=== PATIENT | female | born 1955 | race Asian ===

== ENCOUNTER 2025-02-03 17:32 | Emergency (ER) | payer MEDICARE, SELFPAY ==
--- NOTE | 2025-02-03 17:40 | PC.NURSE ---
PT CALLED BACK TO HAVE VITALS TAKEN. NO RESPONSE FROM LOBBY OR OUTSIDE X1 @[id number]
--- NOTE | 2025-02-03 18:34 | PC.NURSE ---
NO ANSWER X3 [id number] MS
[2025-02-03 19:13] VITALS: BP 167/73; PULSE 72; RESP 19; TEMP 36.8; O2SAT 99; BMI 31.5
--- NOTE | 2025-02-03 19:18 | EKG_ITS ---
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
--- NOTE | 2025-02-03 19:18 | XR_ITS ---
EXAMINATION: PA chest single view TECHNIQUE: Upright PA chest single view Date and time: February 03, 2025, 192 hours INDICATIONS: Onset chest pain today. FINDINGS: Mild prominence left ventricle No pneumonia or pulmonary edema. The Ron structures are intact IMPRESSION: No active disease
--- NOTE | 2025-02-03 19:19 | PD.EDRME ---
Rapid Medical Screening Exam RME Arrival date/time: 02/03/25 17:32 69F with history of HTN presents to ED with 1 week of upper back pain that got worse today because it radiates forward to chest. Patient denies fall/trauma and URI symptoms. She got some kind of injection outpatient that did not provide relief. Chief Complaint: Back Pain/Injury Time Seen by Provider: 02/03/25 21:50 Vital signs: Vital Signs Temperature 98.2 F 02/03/25 19:13 Pulse Rate 72 02/03/25 19:13 Respiratory Rate 19 02/03/25 19:13 Blood Pressure 167/73 H 02/03/25 19:13 Pulse Oximetry (%) 99 02/03/25 19:13 Oxygen Delivery Method Room Air 02/03/25 19:13 Exam: No midline back tenderness. Normal WOB. Clinical Impression: Back pain vs DDD vs CAP vs PE vs ACS
[2025-02-03] MEDS: HYDROcodone/APAP 5/325 TABLET 1 TAB PO (19:33)
[2025-02-03 20:02] LABS: Basophils # (Auto) 0.0 Thou/mm3 (0.0-0.2); Basophils % (Auto) 0 % (0-2.5); Eosinophils # (Auto) 0.0 Thou/mm3 (0.0-0.5); Eosinophils % (Auto) 0 % (0-10); Hematocrit 42.3 % (36.0-46.0); Hemoglobin 13.4 g/dL (12.0-16.0); Immature Granulocytes Auto 0.03 Thou/mm3 (0.00-0.00); Lymphocytes # (Auto) 1.8 Thou/mm3 (1.0-4.8); Lymphocytes % (Auto) 22 % (10-50); Mean Corpuscular HGB Conc 31.7 g/dl (31.0-37.0); Mean Corpuscular Hemoglobin 25.5 pg (25.0-35.0); Mean Corpuscular Volume 80 fL (80-100); Monocytes # (Auto) 0.5 Thou/mm3 (0.0-0.8); Monocytes % (Auto) 7 % (0-12); Neutrophils # (Auto) 5.6 Thou/mm3 (1.8-7.7); Neutrophils % (Auto) 70 % (37-80); Nucleated Red Blood Cell # 0.00 Thou/mm3 (0.00-0.00); Nucleated Red Blood Cell % 0 /100 WBC (0); Platelet Count 256 Thou/mm3 (140-440); RDW Standard Deviation 42.6 fL (36.4-46.3); Red Blood Count 5.26 Miln/mm3 (4.00-5.20); White Blood Count 8.0 Thou/mm3 (3.6-11.0)
[2025-02-03 20:22] LABS: Alanine Aminotransferase 60 U/L (10-49); Albumin, Serum 4.9 gm/dL (3.4-4.8); Albumin/Globulin Ratio 1.6 (1.2-2.2); Alkaline Phosphatase 82 U/L (46-116); Anion Gap 11 (7-16); Aspartate Amino Transferase 23 U/L (0-34); BUN/Creatinine Ratio 15 Ratio (12-20); Bilirubin,Total 0.5 mg/dL (0.3-1.2); Blood Urea Nitrogen 12 mg/dL (9-23); Calcium 10.5 mg/dL (8.3-10.6); Calcium (Corrected) 10.5 mg/dL (8.5-10.1); Carbon Dioxide 27.4 mMol/L (20.0-31.0); Chloride 103 mMol/L (98-107); Creatinine (Component) 0.8 mg/dL (0.6-1.3); Estimated Creatinine Clearance 63.5 mL/min (>60); Globulin 3.0 gm/dL (2.3-3.5); Glucose 130 mg/dL (74-106); Osmolality,Calculated 282 (275-295); Potassium 3.7 mMol/L (3.4-5.1); Sodium 141 mMol/L (136-145); Total Protein 7.9 gm/dL (5.7-8.2); Troponin I < 0.020 ng/mL (0.0-0.045); eGFR > 60 See Note
[2025-02-03 20:48] VITALS: BP 168/83; PULSE 70; RESP 16; TEMP 36.3; O2SAT 98
--- NOTE | 2025-02-03 22:14 | XR_ITS ---
Examination: CT thoracic spine without contrast. 2-D sagittal reconstructions. 2-D coronal reconstructions. 3-D reconstructions. Date and time of exam: February 03, 2025, 1021 hours INDICATIONS: Upper back pain after injections today CTDI: vol (mGy): 29.75 DLP: (mGycm): 1024 Technique: Multiple 1.25 mm axial sections of the thoracic spine without intravenous contrast have been obtained. 2-D sagittal and coronal reconstructions have been obtained. 3-D reconstructions have been obtained. Low dose protocols were performed. One or more of the following dose reduction techniques were used; automated exposure control, adjustment of the mA and/or KV according to patient size, use of iterative reconstruction technique. Findings: Adequate alignment thoracic vertebral bodies on the lateral view Mild to moderate thoracic spondylosis Mild diffuse thoracic disc narrowing No thoracic vertebral body compression fracture Pedicles laminae and posterior spinous processes appear intact IMPRESSION: Mild to moderate thoracic spondylosis
[2025-02-03 22:44] LABS: Collection Type, Urine Clean Catch
--- NOTE | 2025-02-03 22:52 | PD.EDNECK ---
ED Neck Injury Pain RME/HPI General Chief Complaint: Back Pain/Injury Stated Complaint: BACK HURTS Time Seen by Provider: 02/03/25 21:50 Arrival date/time: 02/03/25 17:32 RME / HPI MD complaint: neck pain and upper back pain RME / HPI Narrative: 02/03/25 17:32 69F with history of HTN presents to ED with 1 week of upper back pain that got worse today because it radiates forward to chest. Patient denies fall/trauma and URI symptoms. She got some kind of injection outpatient that did not provide relief. DR. WHITMAN MAIN ED EVALUATION: Patient presenting with diffuse upper posterior thoracic back pain predominantly on the left side with occasional radicular symptoms extending down the left arm of several days duration. Also reports generalized fatigue and weakness x approximately 1 week's duration. No recent fever, chills, vomiting, diarrhea or dysuria noted. PMH: HTN, Type II DM PSH: Hysterectomy, Appendectomy, Allergies: Penicillin, Codeine Social: Non-smoker, Non-drinker Exam: No midline back tenderness. Normal WOB. Impression: Back pain vs DDD vs CAP vs PE vs ACS Related Data Home Medications ?Medication ?Instructions ?Recorded ?Confirmed amlodipine 5 mg tablet 5 mg PO QDAY 04/15/22 04/15/22 cyclobenzaprine 10 mg tablet 10 mg PO BID PRN Spasms 04/15/22 04/15/22 naproxen 500 mg tablet 500 mg PO Q12H PRN Pain 04/15/22 04/15/22 simvastatin 20 mg tablet 20 mg PO QPM 04/15/22 04/15/22 Previous Rx's ?Medication ?Instructions ?Recorded meclizine 25 mg tablet 25 mg PO BID PRN dizziness #14 tabs 04/15/22 cyclobenzaprine 10 mg tablet 5 mg (1/2 x 10 mg) PO BID 7 days 02/04/25 #7 tabs hydrocodone 5 mg-acetaminophen 325 1 tab PO Q8H PRN pain #20 tabs 02/04/25 mg tablet prednisone 20 mg tablet 40 mg PO QDAY 5 days #10 tabs 02/04/25 Allergies Allergy/AdvReac Type Severity Reaction Status Date / Time PENICILLIN, TYLENOL 3 Allergy Unknown Uncoded 02/03/25 17:34 Review of Systems Review of Systems Systems Reviewed: All systems reviewed, normal except as documented Past Medical History Past Medical History CARDIAC: Positive Hypertension ENDOCRINE: Positive Diabetes Mellitus Type 2 ED Exam Narrative Physical exam: GEN. APPEARANCE: The patient is alert awake oriented X-3 under [id number] distress c/o diffuse upper/posterior throacic pain Patient has good eye contact. Patient is cooperative. VITALS: All vitals were reviewed and the pulse ox is 98%, which is normal according to my interpretation HEENT: Normocephalic, atraumatic and nontender. Pupils are equal and reactive. Oral mucosa is moist. NECK: Supple, Mild midline tenderness to the entire cervical segment ? reporducible symptoms with extension and rotation of cervical spine with radiation of pain involving the LUE., no meningismus, no JVD. There is no thyromegaly and no lymphadenopathy. CHEST: Nontender on palpation no deformity and no crepitus. CARDIOVASCULAR: Heart regular rhythm, no murmur or gallop rub or extra beats. LUNGS: Clear to auscultation bilaterally with symmetrical chest rise. No laboring tachypnea or wheezing. No intercostal subcostal retraction. No rales and no rhonchi. ABDOMEN: Soft, flat, nontender to palpation, no guarding or rebound tenderness. There are no abnormal masses palpated. No pulsatile masses or bruits. Active and normal bowel sounds. EXTREMITIES: Normal inspection and palpation. No edema. No cyanosis. Patient is able to move all 4 extremities well SKIN: Warm and dry, no rashes noted. MUSCULOSKELETAL: No lumbar or midline bony tenderness. There is no CVA tenderness. No paraspinal muscle spasm or tenderness. NEURO: Cranial nerves II through XII grossly intact. There are no focal neurologic deficits noted. GCS is 15 PSYCHIATRIC: Patient is in normal mood and affect, cooperative. LYMPHATICS: No major lymphadenopathy noted. Course Quality Measures none Orders Category Date Time Status Apply soft cervical collar NOW Care 02/04/25 00:25 Active EKG (ED ONLY) *Do not use* NOW Care 02/03/25 19:[address] cervical spine wo con Stat Exams 02/03/25 22:[address] thoracic spine wo con Stat Exams 02/03/25 22:14 Completed EKG (ED Only) Stat Exams 02/03/25 19:18 Draft XR chest 1V portable Stat Exams 02/03/25 19:18 Completed CBC Stat Lab 02/03/25 19:45 Completed Comprehensive Metabolic Panel Stat Lab 02/03/25 19:45 Completed Troponin I Stat Lab 02/03/25 19:45 Completed UA, C/S IF [Urinalysis, C/S if Indicated] Stat Lab 02/03/25 22:07 Completed Urine Culture Stat Lab 02/03/25 22:07 Received Dexamethasone Inj [Decadron Inj] Med 02/03/25 22:54 Discontinued 10 mg IM X1 ONE HYDROcodone*/APAP 5/325 [Esmond 5/325] Med 02/03/25 19:20 Discontinued 1 tab PO X1 ONE Morphine* Inj Med 02/03/25 22:54 Discontinued 4 mg IM X1 ONE Vital Signs Vital signs: Vital Signs Temperature 98.2 F 02/03/25 19:13 Pulse Rate 72 02/03/25 19:13 Respiratory Rate 19 02/03/25 19:13 Blood Pressure 167/73 H 02/03/25 19:13 Pulse Oximetry (%) 99 02/03/25 19:13 Oxygen Delivery Method Room Air 02/03/25 19:13 Neck Pain MDM Narrative MDM Narrative:: Scribe Attestation: Carli Gonzalez am scribing for and in the presence of Dr. Mcqueen. Provider Notation: Although this document has been carefully reviewed, there may still be some phonetic and other typographical errors. These errors are purely grammatical due to imperfections in the software program and should not be construed in any way to compromise the substance of the patient's medical care during this visit. Patient presenting with diffuse upper posterior thoracic back pain predominantly on the left side with occasional radicular symptoms extending down the left arm of several days duration. Also reports generalized fatigue and weakness x approximately 1 week's duration. Please see PE findings. Laboratory markers including CBC, serum chemistries, and UA essentially unremarkable, excluding equivocal evidence of UTI with pyuria. CXR unremarkable. CT imaging of the spine, including thoracic spine, demonstrates diffuse thoracic disc narrowing and C-spine CT demonstrates moderate degenerative changes. Patient was treated with PO narcotic analgesics, placed in soft collar, and will be discharged home on combination narcotic analgesics, muscle relaxants, and steroids. Recommend F/U with PMD as patient may require MRI if symptoms persist or develop UE weakness. Patient data External records reviewed:: [facility] previous records (Reviewed prior ED records from 04/15/22. Patient was seen for Benign paroxysmal positional vertigo.) Clinical information provided by:: patient Social determinants that could affect healthcare access:: none Patient has the following chronic illnesses:: HTN, Type II DM How is presenting disease/condition affected by chronic disease/condition?: exacerbated by Evaluation data The following diagnostics were reviewed and interpreted by me:: lab results, radiology exam(s) and EKG tracing(s) (EKG at 19:18 shows normal sinus rhythm at 77, occasional PAC's, leftward axis, no ventricular ectopy, per my interpretation.) Lab and/or radiology exams considered but not ordered:: None Interpretation Summary: RADIOLOGY Chest X-Ray: FINDINGS: Mild prominence left ventricle No pneumonia or pulmonary edema. The Ron structures are intact IMPRESSION: No active disease T-Spine CT: Findings: Adequate alignment thoracic vertebral bodies on the lateral view Mild to moderate thoracic spondylosis Mild diffuse thoracic disc narrowing No thoracic vertebral body compression fracture Pedicles laminae and posterior spinous processes appear intact IMPRESSION: Mild to moderate thoracic spondylosis C-Spine CT: Findings: Axial sections demonstrate intact base of the skull. C1 exhibit satisfactory relationship to the odontoid. No acute cervical vertebral body fracture seen. Alignment posterior spinous processes satisfactory. Moderate degenerative disc disease C4-C5, C5-C6, C6-C7 C3-C4 moderate left neural foraminal stenosis C5-C6 moderate bilateral neural foraminal stenosis C6-C7 moderate left neural foraminal stenosis Impression: No acute cervical fracture. Moderate degenerative disc disease C4-C5, C5-C6, C6-C7 C3-C4, C6-C7 moderate left neural foraminal stenosis C5-C6 moderate bilateral neural foraminal stenosis Medications / Prescriptions Medications or Prescriptions considered but not ordered:: None Medication administrations:: Medication Administration History Discontinued Medications Hydrocodone Bitart/Acetaminophen (Hydrocodone/Apap 5/325 Tablet) 1 tab PO X1 ONE Stop: 02/03/25 19:21 Last Admin: 02/03/25 19:33 Dose: 1 tab Documented By: MODESTO Dexamethasone Sodium Phosphate (Dexamethasone Sod Phos Inj 10 Mg/Ml Vial) 10 mg IM X1 ONE Stop: 02/03/25 22:55 Last Admin: 02/03/25 22:58 Dose: Not Given Documented By: BD Non-Admin Reason: Cancelled by Provider Morphine Sulfate (Morphine Sulf Inj 4 Mg/Ml Vial) 4 mg IM X1 ONE Stop: 02/03/25 22:55 Last Admin: 02/03/25 22:58 Dose: Not Given Documented By: BD Non-Admin Reason: Cancelled by Provider See above if any Consultations Consultation(s) initiated? (list below): No Diagnosis Neck Differential Diagnosis: disc disorder of cervical region, closed subluxation of cervical spine, cervical radiculopathy, vertebral artery dissection, torticollis, cervical spondylosis and strain of neck muscle Most likely diagnosis given after review of the tests above:: UTI, Cervical Radiculopathy Admission Indicated Admission indicated?: not indicated Explain why admission is indicated or not indicated:: Patient does not meet admission criteria Admission Request Was there a request for admission?: No Disposition Plan Disposition Plan: Discharge Discharge Attestation Discharge Attestation: The patient and all family members were given an opportunity to ask questions and understood the discharge instructions. Discharge instructions specifically effects, indications for sooner follow up or return to the emergency department, and the expected course of current diagnosis. Patient condition: Stable Critical Care Time Critical Care Time Critical Care Time: No Discharge Plan Plan Patient Disposition: HOME (Self Care) Discharge Disposition comment: stable Prescriptions/Referrals Prescriptions/Med Rec: New cyclobenzaprine 10 mg tablet 5 mg PO BID 7 Days Qty: 7 0RF hydrocodone-acetaminophen 5-325 mg tablet 1 tab PO Q8H MDD 3 tab PRN (Reason: pain) Qty: 20 0RF prednisone 20 mg tablet 40 mg PO QDAY 5 Days Qty: 10 0RF Taper: Prednisone Taper 40 mg DAILY for 5 Days and 0 Hour No Action cyclobenzaprine 10 mg tablet 10 mg PO BID PRN (Reason: Spasms) amlodipine 5 mg tablet 5 mg PO QDAY simvastatin 20 mg tablet 20 mg PO QPM naproxen 500 mg tablet 500 mg PO Q12H PRN (Reason: Pain) meclizine 25 mg tablet 25 mg PO BID PRN (Reason: dizziness) Qty: 14 0RF Referrals: Rafael Pepper MD [Primary Care Provider, Family Practice] - In 1 week Problem List Clinical Impression: UTI (urinary tract infection), Cervical radiculopathy Patient/Caregiver Discharge Instructions Discharge Activity: activity as tolerated Education Materials: Treating?Strains and Sprains, Radiculopathy Cervical Additional Instructions: Medications as directed. Ice compresses alternate with warm moist heat. Gentle massage. Follow-up with primary care doctor for consideration of MRI of the cervical spine should symptoms persist. Print Language: Chandan Stand Alone Forms: Georgie Award Info., Patient Portal Info Letter
--- NOTE | 2025-02-03 22:54 | XR_ITS ---
Examination: CT cervical spine without contrast 2-D sagittal reconstructions 2-D coronal reconstructions 3-D reconstructions. Exam date and time: February 03, 2025, 1146 hours INDICATIONS: Onset neck pain today CTDI:vol (mGy) 15.1 DLP: (mGycm) 330 Technique: Multiple 2 mm axial sections of the cervical spine have been obtained. The coronal and sagittal reconstructions have been obtained. 3-D reconstructions have been obtained. Low dose protocols were performed. One or more of the following dose reduction techniques were used; automated exposure control, adjustment of the mA and/or KV according to patient size, use of iterative reconstruction technique. Findings: Axial sections demonstrate intact base of the skull. C1 exhibit satisfactory relationship to the odontoid. No acute cervical vertebral body fracture seen. Alignment posterior spinous processes satisfactory. Moderate degenerative disc disease C4-C5, C5-C6, C6-C7 C3-C4 moderate left neural foraminal stenosis C5-C6 moderate bilateral neural foraminal stenosis C6-C7 moderate left neural foraminal stenosis Impression: No acute cervical fracture. Moderate degenerative disc disease C4-C5, C5-C6, C6-C7 C3-C4, C6-C7 moderate left neural foraminal stenosis C5-C6 moderate bilateral neural foraminal stenosis
[2025-02-03 23:09] LABS: Bilirubin,Urine Negative (Negative); Blood,Urine Negative (Negative); Calcium Oxalate Crystals,Urine 3+; Clarity,Urine Clear (Clear/Hazy); Color,Urine Lt-Yellow (Lt Yel-Yel); Glucose, Urine Negative (Negative); Hyaline Casts,Urine < 1 /hpf (0-1); Ketones,Urine 1+ (Negative); Leukocyte Esterase,Urine Positive (Negative); Nitrite,Urine Negative (Negative); PH,Urine 6.5 (5.0-7.0); Protein,Urine Trace (Neg - Trace); RBC,Urine 10 /hpf (0-3); Specific Gravity,Urine 1.019 (1.001-1.035); Squamous Epithelial Cell,Urine 1 /hpf (0-5); Urobilinogen,Urine Negative mg/dL (0.0-1.0); WBC,Urine 12 /hpf (0-5)
[2025-02-03 23:13] LABS: Culture Indicated,Urine Yes
--- NOTE | 2025-02-03 23:42 | PRELIM_ITS ---
CT scan of the thoracic spine without intravenous contrast (axial sections with sagittal and coronal reformats). February 03, 2025 2221 hours Clinical History: Upper back pain Comparison: None Findings: There is generalized osteopenia. There is no fracture, traumatic subluxation or other acute osseous abnormality of the thoracic spine. There are degenerative disc changes and spondylosis of the thoracic spine. Impression: No acute osseous abnormality of the thoracic spine. Degenerative change. Report Electronically Signed By: Malik Aldrich 02/03/2025 11:41:38 PM [EST]
[2025-02-04 00:43] VITALS: BP 161/80; PULSE 71; RESP 18; TEMP 36.4; O2SAT 100
== END 2025-02-04 00:54 | disposition home or self-care (01) ==
PROVIDERS: Nurse Practitioner Family; Physician Assistant; Emergency Provider Emergency Medicine; PCP Family Medicine
DX: N39.0 Urinary tract infection, site not specified (principal); E11.9 Type 2 diabetes mellitus without complications; M54.12 Radiculopathy, cervical region; I10 Essential (primary) hypertension
CPT/HCPCS: 36415; 71045; 72125; 72128; 80053; 81001; 84484; 85025; 87086; 93005; 99283; A9270